=== PATIENT | male | born 1970 | race Caucasian/White ===

== ENCOUNTER 2018-08-06 06:55 | Observation (INO) ==
[2018-08-06 07:26] LABS: Basophils # (auto) 0.05 K/uL (0-0.2); Basophils % (auto) 0.5 %; Eosinophils # (auto) 0.13 K/uL (0-0.5); Eosinophils % (auto) 1.3 %; Hematocrit (blood only) 41.3 % (42-52); Hemoglobin 14.7 g/dL (14.0-18.0); Immature Granulocytes # (auto) 0.04 K/uL (0.00-0.02); Immature Granulocytes % (auto) 0.4 %; Lymphocytes # (auto) 4.16 K/uL (1.2-3.4); Lymphocytes % (auto) 40.9 %; Mean Corpuscular Hgb Conc 35.6 g/dL (32-36); Mean Corpuscular Volume 86.6 fL (80-100); Mean Platelet Volume 9.8 fL (7.4-10.4); Monocytes # (auto) 0.92 K/uL (0.11-0.59); Monocytes % (auto) 9.1 %; Neutrophils # (auto) 4.86 K/uL (1.4-6.5); Neutrophils % (auto) 47.8 %; Platelet Count 309 K/uL (130-400); RDW Coefficient of Variation 13.5 % (11.5-14.5); RDW Standard Deviation 42.7 fL (36.4-46.3); Red Blood Count 4.77 M/uL (4.7-6.1); White Blood Count 10.16 K/uL (4.8-10.8)
--- NOTE | 2018-08-06 07:26 | XRay Report ---
XR chest 1V portable CLINICAL HISTORY: Atypical chest pain COMPARISON STUDY: No previous studies for comparison. FINDINGS: The cardiac silhouette is enlarged. The heart has a slightly globular configuration and a p ericardial effusion cannot be excluded. There is no focal pulmonary consolidation. There are no pleur al effusions. There is no failure.[ IMPRESSION: 1. Enlarged cardiac silhouette 2. No evidence of focal pulmonary consolidation. No evidence of failure. Electronically signed by: Timi Chow M.D. 08/06/2018 7:25 AM
[2018-08-06 07:28] LABS: iSTAT Creatinine 0.8 mg/dl (0.6-1.3); iSTAT Hemoglobin 14.3 g/dl (14.0-18.0); iSTAT Ionized Calcium 1.23 mmol/l (1.12-1.32)
[2018-08-06 07:44] LABS: Alanine Aminotransferase 26 U/L (12-78); Albumin Level 3.8 gm/dl (3.4-5.0); Aspartate Aminotransferase 15 U/L (15-37); Blood Urea Nitrogen 17 mg/dl (7-18); Calcium 9.2 mg/dl (8.5-10.1); Carbon Dioxide 27 mmol/L (21-32); Chloride 108 mmol/L (98-107); Creatinine Clr Calc Pharmacy 96.1 ml/min; Est GFR (African American) 97.9; Est GFR (Non-African American) 84.5; Glucose 105 mg/dl (70-99); Potassium 4.1 mmol/L (3.5-5.1); Sodium 141 mmol/L (136-145)
[2018-08-06 07:49] LABS: Albumin Globulin Ratio 0.9 (0.9-2); Alkaline Phosphatase 64 U/L (45-117); Bilirubin,Total 0.5 mg/dl (0.2-1); Creatine Kinase 128 U/L (39-308); Creatine Kinase MB 1.1 ng/ml (0.5-3.6); Total Protein 7.8 gm/dl (6.4-8.2); Troponin I < 0.015 ng/ml (0-0.045)
[2018-08-06] MEDS ORDERED: ASPIRIN CHEW 324 MG PO STA (08:25)
--- NOTE | 2018-08-06 08:41 | History & Physical Report ---
Date of Service August 06, 2018 Assessment & Plan (1) Chest pain: Risk factor for CAD including hyperlipidemia and strong family history. Repeat recurring chest pain episodes are concerning. Patient was admitted monitored on telemetry. He is remains asymptomatic, not requiring morphine or n itro or other symptom treatment. Full dose aspirin was given. Serial troponin enzymes have been negative. Cardiology was consulted and will plan for stress test. Echocardiogram revealed no acute wall motion abnormalities. Exercise echocardiogram is pending. (2) Dyslipidemia: Continue lovastatin per home regimen. (3) Depression: Continue Zoloft per home regimen. (4) DVT prophylaxis: SCDs/ambulation Full code Disposition-pending outcome of stress echocardiogram and resolution of symptoms. Ida Goode DO [facility] Hospitalist History of Present Illness Chief Complaint: chest pain Primary Care Provider: Sunil Montoya 47-year-old man with no history of CAD, who is a non-smoker with hyperlipidemia presents with 2 episodes of chest pain in the last 2 days. His first episode woke him up out of sleep and was pleuritic in nature. Episode lasted approximately 5 minutes and resolve spontaneously. He then reported further chest pain this morning with exertion that was associated with diaphoresis. He presented to the ER for evaluation and treatment. He denies any shortness of breath outside of chest pain episodes, no cough, fever, chills, abdominal pain, change in bowel movement, UTI symptoms or any other issues outside of chronic allergic rhinitis. With respect to this he reports runny nose, sneezing, sinus pressure and headaches as well as some occasional tinnitus recently and he reports taking Anne for this. He is also on Zoloft for depression and lovastatin for hyperlipidemia. He has a family history of aortic valve issues with her father requiring aortic valve replacement at the age of 40 and his sister who is being monitored for this in her 40s. His father had a bypass surgery young and lifelong issues with CAD. Initial work-up including troponin and EKG was unremarkable for acute ischemia. Initial EKG was sinus bradycardia with a nonspecific T wave abnormality and a repeat EKG 1 hour later revealed resolution of this T wave abnormality in sinus rhythm. Allergies Allergy/AdvReac Type Severity Reaction Status Date / Time No Known Allergies Allergy Mild Unverified 08/06/18 07:42 Home Medications Home Medications Medication Instructions Recorded Confirmed Type fexofenadine [Anne Allergy] 180 mg PO HS 08/06/18 08/06/18 History ibuprofen 200 mg PO Q6H PRN 08/06/18 08/06/18 History lovastatin 20 mg PO HS 08/06/18 08/06/18 History sertraline 100 mg PO HS 08/06/18 08/06/18 History Past Med/Surg History Medical History Allergic rhinitis (Chronic) Depression (Chronic) Dyslipidemia Surgical History No significant past surgical history Family History Father Coronary heart disease Aortic stenosis Sister Aortic stenosis Social History Preferred Language: [place] Islander Communication Ability: Effective 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 Beliefs That Will Affect Care: None Current Living Situation: Spouse and Family current occupational status: employed Other Information That Helps Us Care for You: No Feels Safe at Home: Yes Safety Concerns: Feels Safe At This Time Smoking Status: Never smoker Do You Dip or Chew Tobacco: No Second Hand Exposure: No Tobacco Cessation Education Requested by Patient: No Hx Alcohol Use: Yes Hx Substance Use: No Review of Systems Review of Systems: All systems reviewed & are unremarkable except as noted in HPI & below Physical Exam Physical Exam: CONSTITUTIONAL: WNWD, vitals as above, generally well- appearing EYES: EOMI bilaterally, PERRL, normal conjunctivae, no scleral icterus ENT: external ear and nose normal, oropharynx clear NECK: trachea midline, no lymphadenopathy, normal thyroid RESPIRATORY: clear to auscultation bilaterally, no crackles, rales or wheezes, normal respiratory effort CARDIOVASCULAR: regular rate and rhythm, S1 and 2 heard without murmurs, gallops or rubs, no JVD, no peripheral edema GASTROINTESTINAL: normal bowel sounds, soft, nontender, nondistended MUSCULOSKELETAL: strength 5/5 throughout, head is normocephalic and atraumatic, neck supple, normal palpation of chest wall without tenderness SKIN: warm and dry, no rashes NEUROLOGIC: CN 2-12 grossly intact, no sensory deficit, normal cognition, normal speech, no tremor, no gross focal deficits. PSYCHIATRIC: alert cooperative and oriented to person, place and time. Results & Data Vital Signs (Past 12 Hours) Vital Signs Temp Pulse Resp BP BP Pulse Ox 08/06/18 08:00 58 L 20 95 08/06/18 07:47 60 20 95 08/06/18 07:46 62 21 136/85 96 08/06/18 07:30 59 L 16 97 08/06/18 07:12 64 20 126/78 97 08/06/18 07:08 65 15 98 08/06/18 07:07 139/90 95 08/06/18 07:06 66 13 139/90 98 08/06/18 07:04 36.5 C 68 20 118/65 97 Laboratory Results Short CBC 08/06/18 Range/Units 07:10 WBC 10.16 (4.8-10.8) K/uL Hgb 14.7 (14.0-18.0) g/dL Hct 41.3 L (42-52) % Plt Count 309 (130-400) K/uL BMP 08/06/18 07:10 Sodium 141 Potassium 4.1 Chloride 108 H Carbon Dioxide 27 BUN 17 Creatinine 1.04 Glucose 105 H Calcium 9.2 Cardiac Enzymes 08/06/18 08/06/18 08/06/18 Range/Units 07:10 08:30 12:57 Total Creatine Kinase 128 (39-308) U/L CK-MB (CK-2) 1.1 (0.5-3.6) ng/ml Troponin I < 0.015 < 0.015 < 0.015 (0-0.045) ng/ml Liver Function 08/06/18 Range/Units 07:10 Total Bilirubin 0.5 (0.2-1) mg/dl AST 15 (15-37) U/L ALT 26 (12-78) U/L Alkaline Phosphatase 64 (45-117) U/L Albumin 3.8 (3.4-5.0) gm/dl Medications Administered Current Inpatient Medications Acetaminophen (Tylenol) 650 mg PO Q4H PRN PRN Reason: Pain or Fever Stop: 09/05/18 10:06 Aspirin (Ecotrin Ectab) 81 mg PO QAM TRENA Stop: 09/06/18 08:59 Fexofenadine HCl (Anne) 180 mg PO HS TRENA Stop: 09/05/18 20:59 Lovastatin (Mevacor) 20 mg PO HS TRENA Stop: 09/05/18 20:59 Morphine Sulfate (Morphine Sulfate) 2 mg IV Q30M PRN PRN Reason: Chest Pain Stop: 08/20/18 10:06 Nitroglycerin (Nitrostat) 0.4 mg SL UD PRN PRN Reason: Chest Pain Stop: 09/05/18 10:06 Ondansetron HCl (Zofran) 4 mg IV Q6H PRN PRN Reason: Nausea Stop: 09/05/18 10:06 Polyethylene Glycol (Miralax Powder Packet) 17 gm PO DAILY PRN PRN Reason: Constipation Stop: 09/05/18 10:06 Sertraline HCl (Zoloft) 100 mg PO HS TRENA Stop: 09/05/18 20:59 Code Status & VTE Plan Code Status Full VTE Prophylaxis Plan VTE Prophylaxis will be ordered: Yes Critical Care Time Critical Care Time: No
[2018-08-06] MEDS ORDERED: ACETAMINOPHEN 325 MG TAB PO PRN (10:07)
[2018-08-06] MEDS ORDERED: MoRPHine SULFATE 2 MG/ML CARP IV PRN (10:07)
[2018-08-06] MEDS ORDERED: NITROGLYCERIN SL 0.4 MG/TAB TAB SL PRN (10:07)
[2018-08-06] MEDS ORDERED: ONDANSETRON INJ 2 MG/ML 2 ML VIAL IV PRN (10:07)
[2018-08-06] MEDS ORDERED: POLYETHYLENE (MIRALAX) 17 GM PACK PO PRN (10:07)
[2018-08-06] MEDS ORDERED: ASPIRIN 81 MG ECTAB PO SCH (10:30)
--- NOTE | 2018-08-06 11:16 | Cardiology Consultation ---
Date of Consultation August 06, 2018 Assessment & Plan (1) Chest pain: (2) Dyslipidemia: 39-year-old patient admitted with atypical chest discomfort. Initial cardiac biomarkers negative. ECG without ischemic changes, however, nonspecific T wave abnormality noted. No dysrhythmias on telemetry. Resting 2D transthoracic echocardiogram pending at this time. Repeat troponin at 12 PM. There is no significant elevation, will proceed with exercise stress echo for further stratification. Continue lovastatin. Further recommendations pending results of stress test. History of Present Illness Reason for Consultation: Chest pain Requesting Physician: Dr. Goode Attending Physician: Ida Goode, History of Present Illness 47-year-old patient presents emergency department with an episode of chest pain, diaphoresis, nausea this a.m. Patient experienced 2 episodes of chest pain over the past week. One occurred during exertion and second occurred while at rest and awoke him from sleep. Describes pain as a dull ache. There is no associated shortness of breath. Patient had been driving to work this morning when the pain began. A friend brought him to the emergency department. In the ED, patient spontaneously improved. No ischemic ECG changes with nonspecific T wave abnormality. X-ray demonstrates possible cardiomegaly without congestive heart failure. D-dimer is negative. Initial troponin negative. Patient feeling much better however notes a dull sensation on the left side of his chest. He would not describe it as pain at this time. Feels as if "something is there". is present at bedside. She offers no additional concerns/comp laints at this time. Patient voices concern regarding father's history of valvular heart disease requiring valve replacement in his 40s. Patient believes he had a stress test performed approximately 5 years ago and [place] which was normal. Denies any personal history of coronary disease, valvular heart disease, congestive heart failure, or diabetes. 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 HEENT: Normocephalic. Atraumatic. Conjunctiva pink, no scleral icterus. Neck: No carotid bruits, the carotid upstrokes are brisk. No JVD. No HJR Heart: Regular normal S-1 and S-2 no S-3 or S-4 gallop. No murmurs or rub appreciated. PMI is not displaced. No RV heave. Lungs: Clear bilateral without rales , rhonchi, or wheeze. Abdomen: Normal bowel sounds. Soft. Nontender. No masses or organomegaly. No abdominal bruits. Extremities: No clubbing, cyanosis, or edema. Pulses: radial=2/4, Dorsalis pedis =2/4, posterior tibial=2/4. Neuro: Cranial nerves grossly intact. No focal motor deficit. Results & Data Vital Signs (Past 12 Hours) Vital Signs Temp Pulse Pulse Resp BP BP Pulse Ox 08/06/18 10:24 59 L 08/06/18 10:07 36.8 C 53 L 18 151/83 H 95 08/06/18 09:30 59 L 17 95 08/06/18 09:00 64 19 97 08/06/18 08:30 57 L 19 97 08/06/18 08:00 58 L 20 95 08/06/18 07:47 60 20 95 08/06/18 07:46 62 21 136/85 96 08/06/18 07:30 59 L 16 97 08/06/18 07:12 64 20 126/78 97 08/06/18 07:08 65 15 98 06/20/19 07:07 139/90 95 08/06/18 07:06 66 13 139/90 98 08/06/18 07:04 36.5 C 68 20 118/65 97 Laboratory Results Laboratory Results - last 24 hr 08/06/18 08/06/18 08/06/18 07:10 07:10 07:15 WBC 10.16 RBC 4.77 Hgb 14.7 POC Hgb 14.3 Hct 41.3 L POC Hct 42 MCV 86.6 MCH 30.8 MCHC 35.6 RDW Std Deviation 42.7 RDW Coeff of Lex 13.5 Plt Count 309 MPV 9.8 Immature Gran % (Auto) 0.4 Neut % (Auto) 47.8 Lymph % (Auto) 40.9 [place] % (Auto) 9.1 Eos % (Auto) 1.3 Baso % (Auto) 0.5 Immature Gran # (Auto) 0.04 H Neut # (Auto) 4.86 Lymph # (Auto) 4.16 H [place] # (Auto) 0.92 H Eos # (Auto) 0.13 Baso # (Auto) 0.05 POC D-Dimer POC Sodium 141 Sodium 141 POC Potassium 4.0 Potassium 4.1 POC Chloride 103 Chloride 108 H Carbon Dioxide 27 POC Total CO2 26 Anion Gap 7.0 POC Anion Gap 17.0 POC BUN 17 BUN 17 Creatinine 1.04 POC Creatinine 0.8 Est Cr Clr Drug Dosing 96.1 Est GFR ( Amer) 97.9 Est GFR (Non-Af Amer) 84.5 BUN/Creatinine Ratio 16.0 Glucose 105 H POC Glucose (other) 109 H Calcium 9.2 POC Ioniz Calcium [place] 1.23 Total Bilirubin 0.5 AST 15 ALT 26 Alkaline Phosphatase 64 Total Creatine Kinase 128 CK-MB (CK-2) 1.1 CK/CKMB % Calc 0.9 Troponin I < 0.015 Total Protein 7.8 Albumin 3.8 Globulin 4.0 Albumin/Globulin Ratio 0.9 Lipase 208 08/06/18 08/06/18 07:20 08:30 WBC RBC Hgb POC Hgb Hct POC Hct MCV MCH MCHC RDW Std Deviation RDW Coeff of Lex Plt Count MPV Immature Gran % (Auto) Neut % (Auto) Lymph % (Auto) [place] % (Auto) Eos % (Auto) Baso % (Auto) Immature Gran # (Auto) Neut # (Auto) Lymph # (Auto) [place] # (Auto) Eos # (Auto) Baso # (Auto) POC D-Dimer 131 POC Sodium Sodium POC Potassium Potassium POC Chloride Chloride Carbon Dioxide POC Total CO2 Anion Gap POC Anion Gap POC BUN BUN Creatinine POC Creatinine Est Cr Clr Drug Dosing Est GFR ( Amer) Est GFR (Non-Af Amer) BUN/Creatinine Ratio Glucose POC Glucose (other) Calcium POC Ioniz Calcium [place] Total Bilirubin AST ALT Alkaline Phosphatase Total Creatine Kinase CK-MB (CK-2) CK/CKMB % Calc Troponin I < 0.015 Total Protein Albumin Globulin Albumin/Globulin Ratio Lipase
[2018-08-06 13:32] LABS: Estimated Average Glucose 123 mg/dl; Hemoglobin A1C 5.9 % (4.5-5.6)
--- NOTE | 2018-08-06 16:30 | Discharge Summary ---
Date of Service August 06, 2018 Admission HPI Per Admitting Provider 47-year-old man with no history of CAD, who is a non-smoker with hyperlipidemia presents with 2 episodes of chest pain in the last 2 days. His first episode woke him up out of sleep and was pleuritic in nature. Episode lasted approximately 5 minutes and resolve spontaneously. He then reported further chest pain this morning with exertion that was associated with diaphoresis. He presented to the ER for evaluation and treatment. He denies any shortness of breath outside of chest pain episodes, no cough, fever, chills, abdominal pain, change in bowel movement, UTI symptoms or any other issues outside of chronic allergic rhinitis. With respect to this he reports runny nose, sneezing, sinus pressure and headaches as well as some occasional tinnitus recently and he reports taking Anne for this. He is also on Zoloft for depression and lovastatin for hyperlipidemia. He has a family history of aortic valve issues with her father requiring aortic valve replacement at the age of 40 and his sister who is being monitored for this in her 40s. His father had a bypass surgery young and lifelong issues with CAD. Initial work-up including troponin and EKG was unremarkable for acute ischemia. Initial EKG was sinus bradycardia with a nonspecific T wave abnormality and a repeat EKG 1 hour later revealed resolution of this T wave abnormality in sinus rhythm. Admission Exam Per Admitting Provider CONSTITUTIONAL: WNWD, vitals as above, generally well-appearing EYES: EOMI bilaterally, PERRL, normal conjunctivae, no scleral icterus ENT: external ear and nose normal, oropharynx clear NECK: trachea midline, no lymphadenopathy, normal thyroid RESPIRATORY: clear to auscultation bilaterally, no crackles, rales or wheezes, normal respiratory effort CARDIOVASCULAR: regular rate and rhythm, S1 and 2 heard without murmurs, gallops or rubs, no JVD, no peripheral edema GASTROINTESTINAL: normal bowel sounds, soft, nontender, nondistended MUSCULOSKELETAL: strength 5/5 throughout, head is normocephalic and atraumatic, neck supple, normal palpation of chest wall without tenderness SKIN: warm and dry, no rashes NEUROLOGIC: CN 2-12 grossly intact, no sensory deficit, normal cognition, normal speech, no tremor, no gross focal deficits. PSYCHIATRIC: alert cooperative and oriented to person, place and time. Principal Diagnosis Atypical chest [id number] etiology Dyslipidemia Discharge Data Allergies Allergy/AdvReac Type Severity Reaction Status Date / Time No Known Allergies Allergy Mild Unverified 08/06/18 07:42 Consultations 08/06/18 08:25 Consult Cardiology Stat 08/06/18 08:32 ED Decision to Admit Stat 08/06/18 10:07 Consult Cardiology Routine Hospital Course (1) Chest pain: (2) Dyslipidemia: (3) Depression: He was admitted to telemetry and serial cardiac enzymes were drawn and negative. EKG revealed no evidence of acute ischemia. There were no events on telemetry while monitored for <24 hours. A resting echocardiogram revealed no wall motion abnormalities, a normal EF, and mild concentric left ventricular hypertrophy. He remained free of symptoms. An exercise stress echocardiogram was performed revealing no inducible ischemia. He was re-evaluated just prior to discharge and was hemodynamically stable and afebrile. Physical exam was unremarkable and he was tolerating PO and mentating and ambulating at baseline. He was discharged in stable condition with close primary care follow-up recommended to ensure chest pain is not recurrent and continue further workup for etiology if needed. Total Time Total Time Spent Total Time Spent (In Minutes): 60 Total Time Includes: Examination of the Patient, Discharge Planning, Medication Reconciliation and Communication With Other Providers Discharge Plan Discharge Items Patient Disposition: Home - Self-Care Reason For Visit: chest pain Discharge Diagnosis: chest pain Discharge Goals: Decrease discomfort Activity: Resume your previous activity Non-emergency contact: Primary Care Provider Call non-emergency contact if: you have any medication questions, your symptoms worsen, your pain is not controlled, your pain is worsening, your pain is unusual for you, your pain is concerning for you and you have a fever Follow-up/Referrals: Sunil Montoya D.O. [Primary Care Provider] - Diet: Regular Addtl Provider Instructions: Please continue all medications without changes. It is recommended that you follow-up with your primary care provider within one week of discharge to ensure you have had no return of symptoms and are doing well. It was a pleasure taking care of you! Please call if you have any questions or problems. You can reach a [facility] hospitalist on duty at [facility] 24 hours a day by calling [phone]. Take care of yourself. Ida Goode, DO [facility] Hospitalist Prescriptions: Continued sertraline 100 mg tablet 100 mg PO HS RF: 0 fexofenadine [Anne Allergy] 180 mg Tablet 180 mg PO HS RF: 0 ibuprofen 200 mg Tablet 200 mg PO Q6H PRN (Reason: Pain) RF: 0 lovastatin 20 mg tablet 20 mg PO HS RF: 0 Stand-Alone Forms: Call Back Authorization, [facility], Work/School Release (Inpt) Discharge Orders: Discharge Order (Routine); Ordered 08/06/18 Ordered By: Ida Goode Admission Data Admit Date/Time: 08/06/18 08:42 Attending Provider: Ida Goode Admit Provider: Ida Goode Primary Care Provider: Sunil Montoya Other Providers: Sekuo Harry Sabrina M. Service: Telemetry
[2018-08-06] MEDS ORDERED: LOVASTATIN 20 MG TAB PO SCH (21:00)
[2018-08-06] MEDS ORDERED: SERTRALINE HCL 100 MG TABLET PO SCH (21:00)
[2018-08-06] MEDS ORDERED: FEXOFENADINE HCL 180 MG TAB PO SCH (21:00)
[2018-08-07] MEDS ORDERED: ASPIRIN 81 MG ECTAB PO SCH (09:00)
--- NOTE | 2018-08-07 15:08 | Emergency Department Note ---
Entered by Desiree Brar acting as a scribe for History of Present Illness General Chief complaint: Chest Pain Stated complaint: chest pain Time Seen by Provider: 08/06/18 07:06 Source: patient History of Present Illness Provider complaint: Chest pain Onset (ago): week(s) 2 Location: chest Pain Consistency: + intermittent Exacerbated By: + movement Associated symptoms: + diaphoresis and + other (lightheaded) The patient is a 47 year old male who presents to the ED with complaints of intermittent chest pain that started 2 weeks ago. The patient states that he gets this pain approximately 3 times per week. The patient notes that the pain is exacerbated by exertion. The patient states that he had an episode pain this morning which caused him to become lightheaded and diaphoretic. The patient notes a family history of heart problems but he passed a stress test performed 10 years ago. Home Medications Home Medications Medication Instructions Recorded Confirmed Type fexofenadine [Anne Allergy] 180 mg PO HS 08/06/18 08/06/18 History ibuprofen 200 mg PO Q6H PRN 08/06/18 08/06/18 History lovastatin 20 mg PO HS 08/06/18 08/06/18 History sertraline 100 mg PO HS 08/06/18 08/06/18 History Allergies Allergy/AdvReac Type Severity Reaction Status Date / Time No Known Allergies Allergy Mild Unverified 08/06/18 07:42 Past Med/Surg History Medical History Allergic rhinitis (Chronic) Depression (Chronic) Dyslipidemia Surgical History No significant past surgical history Family History Father Coronary heart disease Aortic stenosis Sister Aortic stenosis Social History Preferred Language: German Communication Ability: Effective Physician Scientist Required: No Beliefs That Will Affect Care: None Current Living Situation: Spouse and Family current occupational status: employed Other Information That Helps Us Care for You: No Feels Safe at Home: Yes Safety Concerns: Feels Safe At This Time Smoking Status: Never smoker Do You Dip or Chew Tobacco: No Second Hand Exposure: No Tobacco Cessation Education Requested by Patient: No Hx Alcohol Use: Yes Hx Substance Use: No Review of Systems See HPI for pertinent positives & negatives. and A total of 10 systems reviewed and were otherwise negative Physical Exam Vital Signs Vital Signs - 24 hr 08/06/18 07:04 08/06/18 07:06 08/06/18 07:07 Temperature 36.5 C Temperature Source Oral Sepsis Recent Fever Within 48 Hours No Sepsis New/Unexplained Change in Mental Status No Sepsis Action Taken by Nursing No Action Required Pulse Rate 68 66 Pulse Rate from SpO2 Sensor 66 Pulse Rhythm Regular Pulse Strength Normal Respiratory Rate 20 13 Respiratory Effort / Characteristics Non-Labored Spontaneous Non-Labored Respiratory Depth Normal Normal Respiratory Pattern Regular Blood Pressure 118/65 139/90 Blood Pressure [Right Arm] 139/90 Blood Pressure Mean 82 106 Blood Pressure Mean [Right Arm] 106 Blood Pressure Position Sitting Pulse Oximetry 97 98 95 Oxygen Delivery Method Room Air Room Air 08/06/18 07:08 08/06/18 07:12 08/06/18 07:30 Temperature Temperature Source Sepsis Recent Fever Within 48 Hours Sepsis New/Unexplained Change in Mental Status Sepsis Action Taken by Nursing Pulse Rate 65 64 59 L Pulse Rate from SpO2 Sensor 64 61 59 L Pulse Rhythm Pulse Strength Respiratory Rate 15 20 16 Respiratory Effort / Characteristics Respiratory Depth Respiratory Pattern Blood Pressure 126/78 Blood Pressure [Right Arm] Blood Pressure Mean 94 Blood Pressure Mean [Right Arm] Blood Pressure Position Pulse Oximetry 98 97 97 Oxygen Delivery Method 08/06/18 07:46 08/06/18 07:47 08/06/18 08:00 Temperature Temperature Source Sepsis Recent Fever Within 48 Hours Sepsis New/Unexplained Change in Mental Status Sepsis Action Taken by Nursing Pulse Rate 62 60 58 L Pulse Rate from SpO2 Sensor 62 59 L 57 L Pulse Rhythm Pulse Strength Respiratory Rate 21 20 20 Respiratory Effort / Characteristics Respiratory Depth Respiratory Pattern Blood Pressure 136/85 Blood Pressure [Right Arm] Blood Pressure Mean 102 Blood Pressure Mean [Right Arm] Blood Pressure Position Pulse Oximetry 96 95 95 Oxygen Delivery Method 08/06/18 08:30 Temperature Temperature Source Sepsis Recent Fever Within 48 Hours Sepsis New/Unexplained Change in Mental Status Sepsis Action Taken by Nursing Pulse Rate 57 L Pulse Rate from SpO2 Sensor 58 L Pulse Rhythm Pulse Strength Respiratory Rate 19 Respiratory Effort / Characteristics Respiratory Depth Respiratory Pattern Blood Pressure Blood Pressure [Right Arm] Blood Pressure Mean Blood Pressure Mean [Right Arm] Blood Pressure Position Pulse Oximetry 97 Oxygen Delivery Method GENERAL: Awake, alert, well-appearing, in no acute distress HENT: Normocephalic, atraumatic. Oropharynx unremarkable. EYES: Normal conjunctiva. Sclera non-icteric. NECK: Supple. No nuchal rigidity. FROM. No JVD. RESPIRATORY: Clear to auscultation. CARDIAC: Regular rate, normal rhythm. Extremities warm and well perfused. Pulses equal. ABDOMEN: Soft, non-distended. No tenderness to palpation. No rebound or guarding. No masses. RECTAL: Deferred. MUSCULOSKELETAL: Chest examination reveals no tenderness. The back is symmetrical on inspection without obvious abnormality. There is no CVA tenderness to palpation. No joint edema. LOWER EXTREMITIES: Calves are equal size bilaterally and non-tender. No edema. No discoloration. NEURO: Normal sensorium. No sensory or motor deficits noted. SKIN: No rash or jaundice noted. Course 0709: Past medical records reviewed. The patient was evaluated in room A12. A complete history and physical exam was performed. 0802: I discussed the case patient's with Dr. Carmen Mckeon. They agree that the patient should be evaluated further due to his family history. 0824: I discussed the patient's case with Dr. Nicole Lew. They will evaluate the patient for further management. Consultations Consultation #1: I discussed the case patient's with Dr. Carmen Mckeon. They agree that the patient should be evaluated further due to his family history. Time: 08:02 Consultation #2: I discussed the patient's case with Dr. Nicole Lew. They will evaluate the patient for further management. Time: 08:24 Administered Medications Discontinued Medications Aspirin (Aspirin) 324 mg PO NOW STA Stop: 08/06/18 08:26 Last Admin: 08/06/18 08:34 Dose: 324 mg Documented by: [id number] Medical Decision Making Differential Diagnosis Differential diagnosis: Etiologies such as shingles, musculoskeletal pain, pericarditis, myocarditis, cardiac ischemia, pericardial tamponade, pneumonia, pneumothorax, pleural ef fusion, hemothorax, pleurisy, aortic pathology, pulmonary embolism, intra- abdominal process, as well as others were considered. Medical Records Attestation: I reviewed the patient's medical records. Home Medications Current Medication List: was personally reviewed by me Laboratory Data Attestation: I reviewed the patient's lab results. Result diagrams: 08/06/18 07:10 08/06/18 07:10 Lab Results 08/06/18 08/06/18 08/06/18 Range/Units 07:10 07:10 07:15 WBC 10.16 (4.8-10.8) K/uL RBC 4.77 (4.7-6.1) M/uL Hgb 14.7 (14.0-18.0) g/dL POC Hgb 14.3 (14.0-18.0) g/dl Hct 41.3 L (42-52) % POC Hct 42 (42-52) % MCV 86.6 (80-100) fL MCH 30.8 (25-34) pg MCHC 35.6 (32-36) g/dL RDW Std Deviation 42.7 (36.4-46.3) fL RDW Coeff of Lex 13.5 (11.5-14.5) % Plt Count 309 (130-400) K/uL MPV 9.8 (7.4-10.4) fL Immature Gran % (Auto) 0.4 % Neut % (Auto) 47.8 % Lymph % (Auto) 40.9 % [place] % (Auto) 9.1 % Eos % (Auto) 1.3 % Baso % (Auto) 0.5 % Immature Gran # (Auto) 0.04 H (0.00-0.02) K/uL Neut # (Auto) 4.86 (1.4-6.5) K/uL Lymph # (Auto) 4.16 H (1.2-3.4) K/uL [place] # (Auto) 0.92 H (0.11-0.59) K/uL Eos # (Auto) 0.13 (0-0.5) K/uL Baso # (Auto) 0.05 (0-0.2) K/uL POC D-Dimer (0-450) ng/mlFEU POC Sodium 141 (135-144) mEq/L Sodium 141 (136-145) mmol/L POC Potassium 4.0 (3.3-5.0) mEq/L Potassium 4.1 (3.5-5.1) mmol/L POC Chloride 103 (101-112) mEq/L Chloride 108 H (98-107) mmol/L Carbon Dioxide 27 (21-32) mmol/L POC Total CO2 26 (24-31) mEq/l Anion Gap 7.0 (3-11) POC Anion Gap 17.0 (16-25) mmol/L POC BUN 17 (7-18) mg/dl BUN 17 (7-18) mg/dl Creatinine 1.04 (0.6-1.4) mg/dl POC Creatinine 0.8 (0.6-1.3) mg/dl Est Cr Clr Drug Dosing 96.1 ml/min Est GFR ( Amer) 97.9 Est GFR (Non-Af Amer) 84.5 BUN/Creatinine Ratio 16.0 (10-20) Glucose 105 H (70-99) mg/dl POC Glucose (other) 109 H (70-99) mg/dl Calcium 9.2 (8.5-10.1) mg/dl POC Ioniz Calcium [place] 1.23 (1.12-1.32) mmol/l Total Bilirubin 0.5 (0.2-1) mg/dl AST 15 (15-37) U/L ALT 26 (12-78) U/L Alkaline Phosphatase 64 (45-117) U/L Total Creatine Kinase 128 (39-308) U/L CK-MB (CK-2) 1.1 (0.5-3.6) ng/ml CK/CKMB % Calc 0.9 (0-3.0) Troponin I < 0.015 (0-0.045) ng/ml Total Protein 7.8 (6.4-8.2) gm/dl Albumin 3.8 (3.4-5.0) gm/dl Globulin 4.0 (2.5-4.0) gm/dl Albumin/Globulin Ratio 0.9 (0.9-2) Lipase 208 (73-393) U/L 08/06/18 08/06/18 Range/Units 07:20 08:30 WBC (4.8-10.8) K/uL RBC (4.7-6.1) M/uL Hgb (14.0-18.0) g/dL POC Hgb (14.0-18.0) g/dl Hct (42-52) % POC Hct (42-52) % MCV (80-100) fL MCH (25-34) pg MCHC (32-36) g/dL RDW Std Deviation (36.4-46.3) fL RDW Coeff of Lex (11.5-14.5) % Plt Count (130-400) K/uL MPV (7.4-10.4) fL Immature Gran % (Auto) % Neut % (Auto) % Lymph % (Auto) % [place] % (Auto) % Eos % (Auto) % Baso % (Auto) % Immature Gran # (Auto) (0.00-0.02) K/uL Neut # (Auto) (1.4-6.5) K/uL Lymph # (Auto) (1.2-3.4) K/uL [place] # (Auto) (0.11-0.59) K/uL Eos # (Auto) (0-0.5) K/uL Baso # (Auto) (0-0.2) K/uL POC D-Dimer 131 (0-450) ng/mlFEU POC Sodium (135-144) mEq/L Sodium (136-145) mmol/L POC Potassium (3.3-5.0) mEq/L Potassium (3.5-5.1) mmol/L POC Chloride (101-112) mEq/L Chloride (98-107) mmol/L Carbon Dioxide (21-32) mmol/L POC Total CO2 (24-31) mEq/l Anion Gap (3-11) POC Anion Gap (16-25) mmol/L POC BUN (7-18) mg/dl BUN (7-18) mg/dl Creatinine (0.6-1.4) mg/dl POC Creatinine (0.6-1.3) mg/dl Est Cr Clr Drug Dosing ml/min Est GFR ( Amer) Est GFR (Non-Af Amer) BUN/Creatinine Ratio (10-20) Glucose (70-99) mg/dl POC Glucose (other) (70-99) mg/dl Calcium (8.5-10.1) mg/dl POC Ioniz Calcium [place] (1.12-1.32) mmol/l Total Bilirubin (0.2-1) mg/dl AST (15-37) U/L ALT (12-78) U/L Alkaline Phosphatase (45-117) U/L Total Creatine Kinase (39-308) U/L CK-MB (CK-2) (0.5-3.6) ng/ml CK/CKMB % Calc (0-3.0) Troponin I < 0.015 (0-0.045) ng/ml Total Protein (6.4-8.2) gm/dl Albumin (3.4-5.0) gm/dl Globulin (2.5-4.0) gm/dl Albumin/Globulin Ratio (0.9-2) Lipase (73-393) U/L Imaging Data Radiologist's Impression: Radiology results as stated below per my review and the radiologist's interpretation: XR chest 1V portable CLINICAL HISTORY: Atypical chest pain COMPARISON STUDY: No previous studies for comparison. FINDINGS: The cardiac silhouette is enlarged. The heart has a slightly globular configuration and a pericardial effusion cannot be excluded. There is no focal pulmonary consolidation. There are no pleural effusions. There is no failure.[ IMPRESSION: 1. Enlarged cardiac silhouette 2. No evidence of focal pulmonary consolidation. No evidence of failure. Electronically signed by: Timi Chow M.D. 08/06/2018 7:25 AM ECG Data Attestation: I personally reviewed and interpreted this ECG as follows: Indication: chest pain Rate (beats per minute): 55 Rhythm: sinus bradycardia Findings: no ST depression and no ST elevation Additional Comments: ECG #2: Normal sinus rhythm, rate 64, normal ECG, unchanged from previous. Blood Pressure Blood Pressure Findings: Elevated blood pressure Blood Pressure Disposition: further management by hospitalist MDM Narrative This is a 47-year-old male who presents emergency department complaining of chest pain. Due to the nature of the patient's symptoms I did discuss the case with the production control analyst on-call. The patient has had serial troponins here in the emergency department as well as serial EKGs. They do not show any evidence of cardiac ischemia however the patient's heart is enlarged on chest x-ray. Because of this the production control analyst is asking for the patient to be admitted to the medicine service. Patient and family were in agreement with the treatment plan. Impression & Plan Chest pain Discharge Plan Visit Data *Final* Discharge Date/Time: 08/06/18 09:54 Chief Complaint: Chest Pain Stated Complaint: chest pain ED Provider: Henrik Tillman Discharge Problem: Chest pain Patient Disposition: Admitted As Inpatient Discharge Instructions Interventions: ED Discharge Assessment Last Done: 08/06/18 09:54 Discharge Problem: Chest pain Qualifiers: Chest pain type: unspecified Qualified Code(s): R07.9 - Chest pain, unspecified The scribe's documentation has been prepared under my direction and personally reviewed by me in its entirety. I confirm that the note above accurately reflects all work, treatment, procedures, and medical decision making performed by me.
== END 2018-08-06 17:12 | disposition home or self-care (01) ==
LOC: 2S 06:55 → ED 06:55 → 2S 09:54
DX: E78.5 Hyperlipidemia, unspecified; R07.9 Chest pain, unspecified; F32.9 Major depressive disorder, single episode, unspecified